=== PATIENT | female | born 1940 | race Caucasian/White ===

== ENCOUNTER 2017-12-27 07:11 | Emergency (ER) | payer MEDICARE ==
[2017-12-27 07:23] VITALS: BP 139/83
--- NOTE | 2017-12-27 07:44 | UC ---
Abdominal Pain Female HPI - HPI Summary HPI Summary: Since 1 am 6 pain epigastric and LUQ. There have been loose stools but no blood, fever or chills. She has had her Gall bladder and appendix out already. She has hx of kidney stones and diverticulitis. She denies urinary symptoms and hematuria. She was fine yesterday. - History of Current Complaint Chief Complaint: UCAbdominalPain Stated Complaint: ABDOMINAL PAIN Time Seen by Provider: 12/27/17 07:23 Hx Obtained From: Patient ?: No Onset/Duration: Lasting Hours Timing: Constant Severity Initially: Moderate Severity Currently: Moderate Pain Intensity: 7 Location: Discrete At: LUQ, Epigastric Character: Aching, Dull Aggravating Factor(s): Nothing Alleviating Factor(s): Nothing Associated Signs and Symptoms: Positive: Diarrhea. Negative: Fever, Cough, Back Pain, Constipation, Blood in Stool, Urinary Symptoms, Nausea, Vomiting Simlar Episode/Dx as:: Not similar to prior stone or diverticulitis. Allergies/Adverse Reactions: Allergies Allergy/AdvReac Type Severity Reaction Status Date / Time No Known Allergies Allergy Verified 12/27/17 07:19 PMH/Surg Hx/FS Hx/Imm Hx Previously Healthy: No - Surgical History Surgical History: Yes Surgery Procedure, Year, and Place: PARTIAL HYSTERECTOMY, GALL BLADDER. RECTACELE REPAIR JANUARY 2015 - Family History Known Family History: Positive: Cardiac Disease - Social History Lives: With Family Alcohol Use: Occasionally Substance Use Type: None Smoking Status (MU): Former Smoker Type: Cigarettes When Did the Patient Quit Smoking/Using Tobacco: 30 YEARS AGO - Immunization History Most Recent Influenza Vaccination: OC T 2015 Most Recent Pneumonia Vaccination: 2014 Review of Systems Gastrointestinal: Abdominal Pain, Diarrhea All Other Systems Reviewed And Are Negative: Yes Physical Exam Triage Information Reviewed: Yes Appearance: Well-Appearing - She walks in comfortably. No signs of pain. Easily changes position on exam table without pain., No Pain Distress, Well-Nourished Vital Signs: Initial Vital Signs Temp 98.2 F 12/27/17 07:17 Pulse 82 12/27/17 07:17 Resp 18 12/27/17 07:17 BP 139/83 12/27/17 07:17 Pulse Ox 99 12/27/17 07:17 Vital Signs Reviewed: Yes Eye Exam: Normal Eyes: Positive: Conjunctiva Clear ENT: Positive: Pharynx normal Neck: Positive: Supple, Nontender, No Lymphadenopathy Respiratory: Positive: Lungs clear, Normal breath sounds, No respiratory distress, No accessory muscle use. Negative: Respiratory distress, Decreased breath sounds, Accessory muscle use, Crackles, Rhonchi, Stridor, Wheezing Cardiovascular: Positive: No Murmur, Pulses Normal, Brisk Capillary Refill Abdominal Exam: Other - there is tenderness with deep palpation of the epigastrum and LUQ without guarding or rebound. Abdomen Description: Positive: No Organomegaly, Soft. Negative: CVA Tenderness (R), CVA Tenderness (L), Distended, Guarding Musculoskeletal: Positive: Strength Intact, ROM Intact, No Edema Neurological: Positive: Alert, Muscle Tone Normal. Negative: Fatigued Psychological: Positive: Normal Response To Family Skin: Negative: rashes Abd Pain Female Course/Dx - Course Course Of Treatment: We had a long conversation with patient and about the possibilities. Diverticulitis usually presents with more focal pain of the LLQ or L periumbilical and trouble having BM. If it is diverticulitis it is mild at this point, may not even need antibiotics for mild cases, and not even show up on CT. To get a CT we would need updated labs for GFR in order to get a good quality CT with contrast. Secondly, it may be enteritis, and if we prescribed antibiotics empirically, it may only make her worse. She agrees to carefully monitor her symptoms and go to ED if they worsen for labs and further investigation. There are no signs of AAA, serious abd infecion otherwise, atypical HI. - Differential Dx/Diagnosis Provider Diagnoses: abdominal pain epigastric and LUQ. Discharge - Sign-Out/Discharge Documenting (check all that apply): Discharge - Discharge Plan Condition: Good Disposition: HOME Patient Education Materials: Acute Abdominal Pain (ED) Referrals: Celio Mock MD [Primary Care Provider] - Additional Instructions: See how the next 24 hours goes. If the pain worsens, you will need to have blood work and a CT. - Billing Disposition and Condition Condition: GOOD Disposition: HOME
== END 2017-12-27 07:47 | disposition home or self-care (01) ==
LOC: UCCORT 07:11
DX: R10.13 Epigastric pain (principal); R10.12 Left upper quadrant pain; Z87.891 Personal history of nicotine dependence
CPT/HCPCS: 99211; G0463